=== PATIENT | male | born 1980 | race Caucasian/White ===

== ENCOUNTER 2017-06-07 09:39 | Emergency (ER) | payer OTHER ==
[2017-06-07 09:46] VITALS: O2SAT 94
[2017-06-07] MEDS ORDERED: FAMOTIDINE 20 MG TAB PO ONE (09:56)
[2017-06-07] MEDS ORDERED: ONDANSETRON DISINTEGRATING 4 MG TAB PO ONE (09:56)
[2017-06-07] MEDS ORDERED: chlordiazePOXIDE 25 MG CAP PO ONE (09:56)
[2017-06-07] MEDS ORDERED: CHLORDIAZEPOXIDE 25MG PREPK#6 BTL TAKEHOME ONE (09:58)
--- NOTE | 2017-06-07 10:02 | EDPHY ---
H & P Stated Complaint: etoh withdrawal sent from [facility] for meds last drink yesterday Time Seen by Provider: 06/07/17 09:47 HPI/ROS: CHIEF COMPLAINT: requesting medication for detox HISTORY OF PRESENT ILLNESS: 37-year-old male presents emergency department [facility] for a Librium prepack. Patient recently had an alcohol relapse after 5 years sober. He reports 2 weeks of drinking. Pt complains of nausea, abdominal pain, shakes. He reports a history of alcohol withdrawal seizure 7 years ago. Pt states he wants to start Vivitrol and has a prescriber of this though he says he can not stay sober for the 7 days needed prior to starting this. Pt denies chest pain or shortness of breath. No confusion or hallucination. REVIEW OF SYSTEMS: A comprehensive 10 point review of systems is otherwise negative aside from elements mentioned in the history of present illness. Source: Patient Exam Limitations: No limitations - Personal History Current Tetanus/Diphtheria Vaccine: Yes - Medical/Surgical History Hx Asthma: No Hx Chronic Respiratory Disease: No Hx Diabetes: No Hx Cardiac Disease: No Hx Renal Disease: No Hx Cirrhosis: No Hx Alcoholism: Yes Hx HIV/AIDS: No Hx Splenectomy or Spleen Trauma: No Other PMH: etoh/htn - Social History Smoking Status: Never smoked Alcohol Use: Heavy - Physical Exam Exam: Physical Exam Gen: Alert and Oriented, NAD HEENT: PERRL, moist mucous membranes NECK: no meningismus CV: regular rate and regular rhythm PULM: CTAB, no wheezes ABDOMEN: soft, mild diffuse tenderness to palpation, BS present BACK: No CVA tenderness NEURO: Neurologically grossly intact EXTREMITIES: normal appearing SKIN: no rash or break in skin on exposed skin PSYCH: answers questions appropriately. Constitutional: Initial Vital Signs Temperature (C) 37 C 06/07/17 09:43 Heart Rate 62 06/07/17 09:43 Respiratory Rate 18 06/07/17 09:43 Blood Pressure 149/103 H 06/07/17 09:43 O2 Sat (%) 94 06/07/17 09:43 O2 Delivery Mode Room Air Allergies/Adverse Reactions: No Known Allergies Allergy (Verified 06/07/17 09:41) Home Medications: Medication Instructions Recorded Celexa 05/19/10 Medical Decision Making ED Course/Re-evaluation: 37-year-old male a presents for a Librium prepack prior to going to the [facility]. Patient has no evidence of delirium tremens. He has normal vital signs, not tachycardic or febrile. Patient has mild hand tremors. He is given a dose of Librium in the emergency department and discharged to the [facility] with a Librium prepack. Departure - Departure Disposition: Home, Routine, Self-Care Clinical Impression: Alcohol dependence Qualifiers: Substance use status: in withdrawal Complication of substance-induced condition : uncomplicated Qualified Code(s): F10.230 - Alcohol dependence with withdrawal , uncomplicated Condition: Good Instructions: Alcohol Withdrawal (ED) Additional Instructions: Go to the addiction recovery center. Follow up with your doctor at first available appointment. Referrals: [facility],. [Clinic] - As per Instructions
[2017-06-07 10:13] VITALS: BP 142/96; PULSE 58; RESP 16
[2017-06-07 10:15] VITALS: TEMP 97.9
== END 2017-06-07 10:30 | disposition home or self-care (01) ==
DX: F10.230 Alcohol dependence with withdrawal, uncomplicated (principal); I10 Essential (primary) hypertension